=== PATIENT | male | born 1980 | race Two or more races ===

== ENCOUNTER 2025-05-20 19:06 | Emergency (ER) | payer OTHER ==
[~2025-05-20] VITALS: Ht 172.7 cm; Wt 90.9 kg
[2025-05-20 19:40] VITALS: TEMP 98.2
[2025-05-20] MEDS: KETOROLAC TROMETHAMINE 30 MG/ML VIAL IM ONE (23:21)
[2025-05-20] MEDS: ACETAMINOPHEN 500 MG TABLET PO ONE (23:21)
[2025-05-21 00:03] VITALS: BP 147/98; PULSE 66; RESP 14; O2SAT 99
== END 2025-05-21 00:39 ==
LOC: EMS 19:06
DX: S22.31XA Fracture of one rib, right side, initial encounter for closed fracture (principal); X50.0XXA Overexertion from strenuous movement or load, initial encounter; W22.03XA Walked into furniture, initial encounter; Y93.89 Activity, other specified; Y92.89 Other specified places as the place of occurrence of the external cause; Y99.8 Other external cause status
CPT/HCPCS: 99283; 71101; 96372; J1885